=== PATIENT | female | born 1990 | race Two or more races ===

== ENCOUNTER 2018-05-29 05:03 | Emergency (ER) | payer MEDICAID, OTHER ==
[2018-05-29 05:11] VITALS: BP 117/85
[2018-05-29] MEDS ORDERED: Sodium Chloride 0.9% 1,000 ML IV STA (05:21)
[2018-05-29] MEDS ORDERED: Sodium Chloride 0.9% 10 ML Syringe FLUSH PRN (05:21)
[2018-05-29] MEDS ORDERED: HYDROmorphone 1 MG/ML Syringe IVPUSH ONE (05:24)
[2018-05-29] MEDS ORDERED: Ondansetron 4 MG/2 ML SDV IVPUSH ONE (05:24)
--- NOTE | 2018-05-29 05:26 | EDM.PDOC ---
ED HPI GENERAL MEDICAL PROBLEM - General Chief Complaint: Gastrointestinal Problem Stated Complaint: [facility] Time Seen by Provider: 05/29/18 05:17 Source of Information: Reports: Patient, EMS History Limitations: Reports: No Limitations - History of Present Illness INITIAL COMMENTS - FREE TEXT/NARRATIVE: The patient presents by [facility] for abdominal cramps, nausea and vomiting and diarrhea. This all started after she at last night at 10pm. She has generalized weakness and chills. She has no fever, cough, chest pain or shortness of breath. She is concerned she may have eaten some bad food. She still has her appendix and gallbladder. Onset: Gradual Duration: Hour(s): Location: Reports: Abdomen Quality: Reports: Other (cramping) Severity: Moderate Improves with: Reports: None Worsens with: Reports: None Associated Symptoms: Reports: Fever/Chills, Nausea/Vomiting. 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 Denies: Fever HEENT: Reports: No Symptoms Respiratory: Reports: No Symptoms Cardiovascular: Reports: No Symptoms Endocrine: Reports: No Symptoms GI/Abdominal: Reports: Abdominal Pain, Diarrhea, Nausea, Vomiting : Reports: No Symptoms Musculoskeletal: Reports: No Symptoms ED EXAM, GI/ABD - Physical Exam Exam: See Below Exam Limited By: No Limitations General Appearance: Alert, No Apparent Distress Ears: Normal External Exam Nose: Normal Inspection Head: Atraumatic, Normocephalic Neck: Normal Inspection Respiratory/Chest: No Respiratory Distress, Lungs Clear, Normal Breath Sounds Cardiovascular: Regular Rate, Rhythm, No Edema, No Murmur GI/Abdominal Exam: Soft, Non-Tender, No Organomegaly, No Mass Back Exam: Normal Inspection Extremities: Normal Inspection Neurological: Alert, Oriented, No Motor/Sensory Deficits Course - Vital Signs Last Recorded V/S: Last Vital Signs Temp 97.3 F 05/29/18 05:07 Pulse 85 05/29/18 05:07 Resp 20 05/29/18 05:07 BP 117/85 05/29/18 05:07 Pulse Ox 100 05/29/18 05:07 - Orders/Labs/Meds Orders: Active Orders 24 hr Category Date Time Status Peripheral IV Care [RC] . DIRECTED Care 05/29/18 05:21 Active HCG QUALITATIVE,SERUM [CHEM] Stat Lab 05/29/18 05:35 Received UA W/MICROSCOPIC [URIN] Stat Lab 05/29/18 06:00 Results Sodium Chloride 0.9% [Saline Flush] Med 05/29/18 05:21 Active 10 ml FLUSH ASDIRECTED PRN ED Antiemetic Medication Reflex [OM.PC] Stat Oth 05/29/18 05:21 Ordered Peripheral IV Insertion Adult [OM.PC] Stat Oth 05/29/18 05:21 Ordered Medication Orders Sodium Chloride (Saline Flush) 10 ml FLUSH ASDIRECTED PRN PRN Reason: Keep Vein Open Last Admin: 05/29/18 05:36 Dose: 10 ml Labs: Laboratory Tests 05/29/18 05/29/18 05/29/18 Range/Units 05:35 05:35 06:00 WBC 9.30 (3.98-10.04) K/mm3 RBC 4.86 (3.98-5.22) M/mm3 Hgb 14.5 (11.2-15.7) gm/L Hct 42.4 (34.1-44.9) % MCV 87.2 (79.4-94.8) fl MCH 29.8 (25.6-32.2) pg MCHC 34.2 (32.2-35.5) g/dl RDW Std Deviation 40.3 (36.4-46.3) fL Plt Count 199 (182-369) K/mm3 MPV 11.7 (9.4-12.3) fl Neut % (Auto) 89.9 H (34.0-71.1) % Lymph % (Auto) 4.5 L (19.3-51.7) % [place] % (Auto) 4.9 (4.7-12.5) % Eos % (Auto) 0.4 L (0.7-5.8) Baso % (Auto) 0.1 (0.1-1.2) % Neut # (Auto) 8.35 H (1.56-6.13) K/mm3 Lymph # (Auto) 0.42 L (1.18-3.74) K/mm3 [place] # (Auto) 0.46 H (0.24-0.36) K/mm3 Eos # (Auto) 0.04 (0.04-0.36) K/mm3 Baso # (Auto) 0.01 (0.01-0.08) K/mm3 Manual Slide Review Abnormal smear Sodium 140 (136-145) mEq/L Potassium 3.8 (3.5-5.1) mEq/L Chloride 103 (98-107) mEq/L Carbon Dioxide 26 (21-32) mEq/L Anion Gap 14.8 (5-15) BUN 20 H (7-18) mg/dL Creatinine 0.9 (0.55-1.02) mg/dL Est Cr Clr Drug Dosing 81.08 mL/min Estimated GFR (MDRD) > 60 (>60) mL/min BUN/Creatinine Ratio 22.2 H (14-18) Glucose 113 H (74-106) mg/dL Calcium 8.8 (8.5-10.1) mg/dL Total Bilirubin 0.6 (0.2-1.0) mg/dL AST 20 (15-37) U/L ALT 21 (14-59) U/L Alkaline Phosphatase 69 (46-116) U/L Total Protein 8.0 (6.4-8.2) g/dl Albumin 4.0 (3.4-5.0) g/dl Globulin 4.0 gm/dL Albumin/Globulin Ratio 1.0 (1-2) Lipase 141 (73-393) U/L Urine Color Yellow (Yellow) Urine Appearance Clear (Clear) Urine pH 8.5 H (5.0-8.0) Ur Specific [place] 1.020 (1.005-1.030) Urine Protein 2+ H (Negative) Urine Glucose (UA) Negative (Negative) Urine Ketones 2+ H (Negative) Urine Occult Blood Negative (Negative) Urine Nitrite Negative (Negative) Urine Bilirubin Negative (Negative) Urine Urobilinogen 0.2 (0.2-1.0) Ur Leukocyte Esterase Negative (Negative) Urine RBC 0-5 (0-5) /hpf Urine WBC 0-5 (0-5) /hpf Ur Squamous Epith Cells 5-10 H (0-5) /hpf Urine Bacteria Few (FEW) /hpf Urine Mucus Few (FEW) /hpf Meds: Medications Generic Name Dose Route Start Last Admin Trade Name Freq PRN Reason Stop Dose Admin Sodium Chloride 10 ml 05/29/18 05:21 05/29/18 05:36 Saline Flush FLUSH 10 ml ASDIRECTED PRN Administration Keep Vein Open Discontinued Medications Generic Name Dose Route Start Last Admin Trade Name Freq PRN Reason Stop Dose Admin Hydromorphone HCl 0.5 mg 05/29/18 05:24 05/29/18 05:33 Dilaudid IVPUSH 05/29/18 05:25 0.5 mg ONETIME ONE Administration Sodium Chloride 1,000 mls @ 1,000 mls/hr 05/29/18 05:21 05/29/18 05:30 Normal Saline IV 05/29/18 06:20 1,000 mls/hr .BOLUS STA Administration Ondansetron HCl 4 mg 05/29/18 05:24 05/29/18 05:32 Zofran IVPUSH 05/29/18 05:25 4 mg ONETIME ONE Administration - Re-Assessments/Exams Free Text/Narrative Re-Assessment/Exam: 05/29/18 05:26 I ordered an IV NS 1L bolus, zofran 4mg IV, dilaudid 0.5mg IV, labs and UA. 05/29/18 06:32 Her CBC and CMP look good. Her UA shows no UTI. She feels much better and she can keep down some ice chips. I will discharge her home with some zofran. Departure - Departure Time of Disposition: 06:35 Disposition: Home, Self-Care 01 Condition: Good Clinical Impression: Gastroenteritis - Discharge Information *PRESCRIPTION DRUG MONITORING PROGRAM REVIEWED*: Not Applicable *COPY OF PRESCRIPTION DRUG MONITORING REPORT IN PATIENT LUIS F: Not Applicable Prescriptions: Ondansetron [Zofran ODT] 4 mg PO Q6H PRN #20 tab.dis PRN Reason: Nausea\vomiting Referrals: Sheyla Navarro PA-C [Physician Director [employer]] - Forms: ED Department Discharge Additional Instructions: Drink plenty of fluids. Take the zofran every 6 hours as needed for nausea and vomiting. Please return if you are worse. - My Orders Last 24 Hours: My Active Orders 05/29/18 05:21 Peripheral IV Care [] . DIRECTED Sodium Chloride 0.9% [Saline Flush] 10 ml FLUSH ASDIRECTED PRN ED Antiemetic Medication Reflex [OM.PC] Stat Peripheral IV Insertion Adult [OM.PC] Stat 05/29/18 05:35 HCG QUALITATIVE,SERUM [CHEM] Stat 05/29/18 06:00 UA W/MICROSCOPIC [URIN] Stat - Assessment/Plan Last 24 Hours: My Active Orders 05/29/18 05:21 Peripheral IV Care [RC] . DIRECTED Sodium Chloride 0.9% [Saline Flush] 10 ml FLUSH ASDIRECTED PRN ED Antiemetic Medication Reflex [OM.PC] Stat Peripheral IV Insertion Adult [OM.PC] Stat 05/29/18 05:35 HCG QUALITATIVE,SERUM [CHEM] Stat 05/29/18 06:00 UA W/MICROSCOPIC [URIN] Stat
== END 2018-05-29 06:41 | disposition home or self-care (01) ==
LOC: JD.ED 05:03
DX: K52.9 Noninfective gastroenteritis and colitis, unspecified (principal)
CPT/HCPCS: 36415; 80053; 81001; 83690; 84703; 85025; 96361; 96374; 96375; 99284; J1170; J2405; J7040

== ENCOUNTER 2019-04-21 21:42 | Emergency (ER) | payer MEDICAID ==
[2019-04-21 21:48] VITALS: BP 122/67; PULSE 112
--- NOTE | 2019-04-21 21:53 | EDM.PDOCBH ---
ED HPI GENERAL MEDICAL PROBLEM - General Chief Complaint: Drug or Alcohol Abuse Stated Complaint: [facility] Time Seen by Provider: 04/21/19 21:42 Source of Information: Reports: Patient History Limitations: Reports: No Limitations - History of Present Illness INITIAL COMMENTS - FREE TEXT/NARRATIVE: 28-year-old female arrives in the ED per [facility]. She states she smoked marijuana earlier this evening and within 5-10 minutes started to feel very unwell. She started to feel like her life is flashing before her eyes particularly thing that's happened in the past. She states many of the thought processes were extremely negative. He then started to hyperventilate and felt like she was floating in the clouds. She was aware of her heart racing. Some difficulties getting her breath etc. She got weak in her extremities with numbness and tingling and felt like she was going to pass out. She therefore summoned the [facility]. Paramedics recognize that her heart rate was 150 when they attended her with a respiratory over 24/m i.e. hyperventilation syndrome. Thus had an IV started and was given 2 mg of Ativan IV which brought her symptoms under control within 10 minutes. At this time she feels fine. She denies any chance of . Notices a new bag of marijuana which he did not use before and it could be laced with other drugs. Had a bad reaction or" bad trip" from marijuana in the past. Onset: Today Onset Date: 04/21/19 Onset Time: 20:45 Duration: Minutes: Location: Reports: Generalized Quality: Reports: Other Severity: Moderate (See history of present illness) Improves with: Reports: Medication (Ativan 2 mg IV given by paramedics relieved her symptoms) Context: Reports: Other (Smoking marijuana precipitated bad thoughts or bad trip.). Denies: Activity, Exercise, Lifting, Sick Contact, Trauma Associated Symptoms: Reports: Confusion, Chest Pain, Loss of Appetite, Shortness of Breath, Weakness (Racing heart), Other. 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 Denies: Fever, Chills, Weight Loss Respiratory: Reports: Shortness of Breath. Denies: Wheezing, Pleuritic Chest Pain, Cough, Sputum Cardiovascular: Denies: Chest Pain, Blood Pressure Problem, Claudication, Dyspnea on Exertion, Edema, Lightheadedness, Orthopnea Endocrine: Reports: No Symptoms GI/Abdominal: Reports: No Symptoms : Reports: No Symptoms Musculoskeletal: Reports: No Symptoms Skin: Reports: No Symptoms Neurological: Reports: Confusion, Dizziness, Numbness, Tingling ([place] like her heart was racing and she had numbness and tingling in her hands and face ), Weakness, Other Psychiatric: Reports: No Symptoms Hematologic/Lymphatic: Reports: No Symptoms Immunologic: Reports: No Symptoms ED EXAM, BEHAVIORAL HEALTH - Physical Exam Exam: See Below Exam Limited By: No Limitations General Appearance: Alert, WD/WN, No Apparent Distress, Other (Ears mildly tired at this time. Vital signs show temperature 36.6 heart rate is 112 and sinus. Respiratory is 16 with O2 sats of 98% BP is 122/67) Eye Exam: Bilateral Eye: Normal Inspection, PERRL Throat/Mouth: Normal Inspection, Normal Lips, Normal Oropharynx Head: Atraumatic, Normocephalic, Other Neck: Normal Inspection, Supple, Non-Tender, Full Range of Motion. No: Lymphadenopathy (L), Lymphadenopathy (R) Respiratory/Chest: No Respiratory Distress, Lungs Clear, Normal Breath Sounds, No Accessory Muscle Use, Chest Non-Tender Cardiovascular: Normal Peripheral Pulses, Regular Rate, Rhythm (Heart rate was 94 when I checked her.), No Edema, No Gallop, No Murmur, No Rub GI/Abdominal: Normal Bowel Sounds, Soft, Non-Tender, No Organomegaly, No Distention. No: Guarding, Rigid, Rebound, Tender Extremities: Normal Inspection, Normal Range of Motion, Non-Tender Neurological: Alert, CN II-XII Intact, Normal Cognition, No Motor/Sensory Deficits, Oriented x 3 Psychiatric: Normal Cognition, Oriented, Other Skin Exam: Warm, Dry (Mildly anxious.), Intact, Normal color, No rash COURSE, BEHAVIORAL HEALTH COMP - Course Vital Signs: Last Vital Signs Temp 36.6 C 04/21/19 21:45 Pulse 112 H 04/21/19 21:45 Resp 16 04/21/19 21:45 BP 122/67 04/21/19 21:45 Pulse Ox 98 04/21/19 21:45 Orders, Labs, Meds: Laboratory Tests 04/21/19 04/21/19 Range/Units 22:03 22:04 Urine HCG, Qual Negative (NEGATIVE) Urine Opiates Screen Negative (UXHIBO=915) Ur Buprenorphine Scrn Negative (CUTOFF=10) Ur Oxycodone Screen Negative (WIB0TY=999) Urine Methadone Screen Negative (PIWROW=471) Ur Propoxyphene Screen Negative (PYBFVI=462) Ur Barbiturates Screen Negative (IDBEKL=358) Ur Tricyclics Screen Negative (AVANMW=578) Ur Phencyclidine Scrn Negative (CUTOFF=25) Ur Amphetamine Screen Negative (HGRZDD=759) U Methamphetamines Scrn Negative (XQCSOU=554) U Benzodiazepines Scrn Negative (QEXJGY=994) U Cocaine Metab Screen Negative (GKKAKO=205) U Marijuana (THC) Screen Presumptive positive H (CUTOFF=50) Re-Assessment/Re-Exam: 28-year-old female presents to the ED per [facility] after experiencing bad side effects after smoking marijuana tonight. This was a new batch of marijuana for her. He was perhaps laced with other drugs or stimulants. She felt so bad that she had to call the [facility] for help. She may have gotten a batch with very high THC content which produced mild or worsening hallucinogenic effect of normal versus being laced with methamphetamine. Heart rate of 150s and respiratory 24-20/m with hyperventilation syndrome. She was treated with 2 mg of Ativan intravenously on scene and improved immensely en route to [place]. At present she feels pretty well back to normal although she remains mildly anxious. Plan urine drug screen Re-Assessment/Re-Exam Date: 04/21/19 (Urine drug screen came back positive only for marijuana. She may have had some marijuana with a very high THC component to it. Rate she is feeling improved she's been able to sleep therefore she will be discharged home on appropriate ride can be arranged for her.) Re-Assessment/Re-Exam Time: 23:59 (She has not yet been able to find anybody to take her home. She may remain in the ED overnight.) Departure - Departure Time of Disposition: 02:00 Disposition: Home, Self-Care 01 Condition: Fair Clinical Impression: Adverse effect of drug Qualifiers: Encounter type: initial encounter Qualified Code(s): T50.905A - Adverse effect of unspecified drugs, medicaments and biological substances, initial encounter - Discharge Information *PRESCRIPTION DRUG MONITORING PROGRAM REVIEWED*: Not Applicable *COPY OF PRESCRIPTION DRUG MONITORING REPORT IN PATIENT LUIS F: Not Applicable Referrals: PCP,Unknown [Ordering Only Provider] - Additional Instructions: Evaluation the emergency room tonight in regards to an adverse effect to smoking marijuana. It appears that you developed a significant hallucinogenic properties from smoking marijuana which then turned into a "bad high" with rapid heart rate and shortness of breath than the numbness and tingling in your extremities all signs and symptoms of an anxiety attack or panic attack. When the paramedics arrived her heart rate was 150 bpm with normal being 55-100. He will also breathing much more rapidly than normal with hyperventilation syndrome precipitating the weakness in her limbs and numbness and tingling and lightheadedness. They gave you 2 mg of Ativan intravenously which improved her symptoms within 10 minutes. Urine drug screen done here in the emergency room shows no other stimulants in the urine such as cocaine, LSD, psilocybin, methamphetamine etc. It was positive only for marijuana. This suggests she may have gotten a bachelor marijuana with a very high THC level much more than you' re used to. Just want to sleep as the Ativan will last for the next 6-8 hours and will make you quite sleepy for the rest of night. Sepsis Event Note - Evaluation Sepsis Screening Result: No Definite Risk - Focused Exam Vital Signs: Vital Signs Temp Pulse Resp BP Pulse Ox 04/21/19 21:45 36.6 C 112 H 16 122/67 98 Date Exam was Performed: 04/22/19 Time Exam was Performed: 02:13
== END 2019-04-22 02:09 | disposition home or self-care (01) ==
LOC: JD.ED 21:42
DX: R20.0 Anesthesia of skin (principal); R20.2 Paresthesia of skin; R00.2 Palpitations; T40.7X5A Adverse effect of cannabis (derivatives), initial encounter
CPT/HCPCS: 80306; 81025; 99283; 99285

== ENCOUNTER 2019-08-01 11:04 | Emergency (ER) | payer MEDICAID ==
--- NOTE | 2019-08-01 12:08 | EDM.PDOC ---
ED HPI GENERAL MEDICAL PROBLEM - General Chief Complaint: Cardiovascular Problem Stated Complaint: SOB/RAPID HEARTBEAT Time Seen by Provider: 08/01/19 11:39 Source of Information: Reports: Patient, RN Notes Reviewed History Limitations: Reports: No Limitations - History of Present Illness INITIAL COMMENTS - FREE TEXT/NARRATIVE: Patient is a 28-year-old female who presents to the ED for evaluation of rapid heart rate, and shortness of breath. The patient notes that she has been under a lot of stress and anxiety in her life, and that on Friday she started drinking alcohol, and did some "constitution party favors", and found out that they were meth afterwards, she states that when she drinks a lot of alcohol, in combination with meth that this makes her heart "freak out". Patient notes that over the weekend she has been trying to drink some water, and did take an antianxiety medication that a provider from the [facility] in [place] gave her, she states that that made it worse. She does not remember the name of the medication, but states that it does help blood pressure, and also helps anxiety. Patient states that she does have some increased dizziness , and "butterfly feelings" in her stomach. She notes that she has been having issues with her heart since April. She states that she finds most of the problems stem from increased alcohol use. She denies any nausea/vomiting/ diarrhea, she states she is having some mild left chest discomfort, some shortness of breath, but no fevers or chills. Patient states she usually uses the [facility] for her primary care provider source. She has not had this issue worked up in the past. 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: - Infectious Disease History Infectious Disease History: Reports: Herpes Social & Family History - Family History Family Medical History: Noncontributory - Tobacco Use Smoking Status *Q: Never Smoker - Caffeine Use Caffeine Use: Reports: Tea - Alcohol Use Alcohol Use History: Yes Date/Time of Last Drink Comment: last binge alcohol was 07/30/19 Alcohol Use Frequency: Daily (states that she normally has 1 glass of wine every other day but then also binge drinks from time to time) - Recreational Drug Use Recreational Drug Use: Yes Drug Use in Last 12 Months: Yes Recreational Drug Type: Reports: Cocaine, Methamphetamine Other Recreational Drug Type: last meth intake 07/30/19 Recreational Drug Use Frequency: Rarely - Living Situation & Occupation Living situation: Reports: Single Occupation: Unemployed ED ROS GENERAL - Review of Systems Review Of Systems: Comprehensive ROS is negative, except as noted in HPI. ED EXAM, GENERAL - Physical Exam Exam: See Below Exam Limited By: No Limitations General Appearance: Alert, WD/WN, No Apparent Distress Eye Exam: Bilateral Eye: EOMI, Normal Inspection, PERRL Ears: Normal External Exam Nose: Normal Inspection Throat/Mouth: Normal Inspection, Normal Lips, Normal Teeth, Normal Gums, Normal Oropharynx, Normal Voice, No Airway Compromise Head: Atraumatic, Normocephalic Neck: Normal Inspection Respiratory/Chest: No Respiratory Distress, Lungs Clear, Normal Breath Sounds, No Accessory Muscle Use, Chest Non-Tender Cardiovascular: Normal Peripheral Pulses, Regular Rate, Rhythm, No Murmur Peripheral Pulses: 3+: Radial (L), Radial (R) GI/Abdominal: Normal Bowel Sounds, Soft, Non-Tender, No Distention, No Mass Extremities: Normal Inspection, Normal Capillary Refill Neurological: Alert, Oriented, Normal Cognition, No Motor/Sensory Deficits Psychiatric: Normal Affect, Normal Mood, Anxious (pt talks quite rapidly) Skin Exam: Warm, Dry, Intact, Normal Color, No Rash EKG INTERPRETATION EKG Date: 08/01/19 Time: 11:45 Rhythm: NSR Rate (Beats/Min): 69 [place]: Normal P-Wave: Present QRS: Normal ST-T: Normal QT: Normal Comparison: NA - No Prior EKG EKG Interpretation Comments: no acute ischemic change, reviewed by myself and Dr. Choudhary Course - Vital Signs Last Recorded V/S: Last Vital Signs Temp 97.0 F 08/01/19 11:20 Pulse 73 08/01/19 11:20 Resp 16 08/01/19 11:20 BP 124/87 08/01/19 11:20 Pulse Ox 96 08/01/19 11:20 - Orders/Labs/Meds Orders: Active Orders 24 hr Category Date Time Status EKG Documentation Completion [RC] STAT Care 08/01/19 12:03 Active Labs: Laboratory Tests 08/01/19 08/01/19 08/01/19 Range/Units 12:25 13:00 13:00 WBC 11.12 H (3.98-10.04) K/mm3 RBC 4.58 (3.98-5.22) M/mm3 Hgb 14.0 (11.2-15.7) gm/dl Hct 41.9 (34.1-44.9) % MCV 91.5 D (79.4-94.8) fl MCH 30.6 (25.6-32.2) pg MCHC 33.4 (32.2-35.5) g/dl RDW Std Deviation 45.1 (36.4-46.3) fL Plt Count 222 (182-369) K/mm3 MPV 11.5 (9.4-12.3) fl Neut % (Auto) 77.9 H (34.0-71.1) % Lymph % (Auto) 16.0 L (19.3-51.7) % Sharkey % (Auto) 5.0 (4.7-12.5) % Eos % (Auto) 0.7 (0.7-5.8) Baso % (Auto) 0.3 (0.1-1.2) % Neut # (Auto) 8.66 H (1.56-6.13) K/mm3 Lymph # (Auto) 1.78 (1.18-3.74) K/mm3 Sharkey # (Auto) 0.56 H (0.24-0.36) K/mm3 Eos # (Auto) 0.08 (0.04-0.36) K/mm3 Baso # (Auto) 0.03 (0.01-0.08) K/mm3 Manual Slide Review Normal smear Sodium 139 (136-145) mEq/L Potassium 4.0 (3.5-5.1) mEq/L Chloride 103 (98-107) mEq/L Carbon Dioxide 24 (21-32) mEq/L Anion Gap 16.0 H (5-15) BUN 14 (7-18) mg/dL Creatinine 0.9 (0.55-1.02) mg/dL Est Cr Clr Drug Dosing 80.36 mL/min Estimated GFR (MDRD) > 60 (>60) mL/min BUN/Creatinine Ratio 15.6 (14-18) Glucose 98 (74-106) mg/dL Calcium 9.5 (8.5-10.1) mg/dL Total Bilirubin 1.2 H (0.2-1.0) mg/dL AST 19 (15-37) U/L ALT 18 (14-59) U/L Alkaline Phosphatase 50 (46-116) U/L Total Protein 8.2 (6.4-8.2) g/dl Albumin 4.0 (3.4-5.0) g/dl Globulin 4.2 gm/dL Albumin/Globulin Ratio 1.0 (1-2) TSH 3rd Generation 0.621 (0.358-3.74) uIU/mL Urine Opiates Screen Negative (TYJZPB=643) Ur Buprenorphine Scrn Negative (CUTOFF=10) Ur Oxycodone Screen Negative (KYS8YD=230) Urine Methadone Screen Negative (VSHPVH=122) Ur Propoxyphene Screen Negative (WILABX=843) Ur Barbiturates Screen Negative (AMQHXY=181) Ur Tricyclics Screen Negative (FWOEVM=045) Ur Phencyclidine Scrn Negative (CUTOFF=25) Ur Amphetamine Screen Presumptive positive H (GLJXVZ=538) U Methamphetamines Scrn Negative (NBRHLZ=839) U Benzodiazepines Scrn Negative (UDNOCO=725) U Cocaine Metab Screen Negative (KLFZDK=382) U Marijuana (THC) Screen Negative (CUTOFF=50) - Re-Assessments/Exams Free Text/Narrative Re-Assessment/Exam: 08/01/19 12:18 Patient presents to the ED for evaluation of her heart issues and anxiety. EKG was done at time of triage, demonstrates normal sinus rhythm no acute ischemic change. Reviewed by myself and Dr. Choudhary. Have ordered some labs and a chest x-ray for further evaluation, will likely send the patient home with a Holter monitor and have her follow-up with the provider at the [facility] for further management. 08/01/19 14:09 Chest x-ray demonstrates no acute abnormalities appreciated. Minimal scoliosis seen. Labs have started to result, the CBC is essentially within normal limits , drug screen is presumptive positive for amphetamines which would be consistent with her admitted use. Metabolic panel and TSH are pending at this time. 08/01/19 14:34 Metabolic panel and TSH are back and within normal limits. Will discharge patient home with a Holter monitor and a copy of her EKG and her discharge packet for [facility] services review. Departure - Departure Time of Disposition: 14:36 Disposition: Home, Self-Care 01 Condition: Good Clinical Impression: Palpitations with regular cardiac rhythm, Anxiety Instructions: Palpitations, [id number], Living With Anxiety Referrals: PCP,None [Primary Care Provider] - Forms: ED Department Discharge Additional Instructions: You were evaluated in the ER today regarding your palpitations and anxiety. You had an EKG and some lab work done at today's visit, and all of this was within normal limits, you will be sent home with a 48-hour Holter monitor, please wear this continuously to monitor your heart rhythm over the next few days. You will have to return this to the ER entrance after 48 hours is completed, so on Friday afternoon. Recommend you wait at least 1 week for us to get the results read before you schedule an appointment with your primary care provider for follow-up. The results will be sent to Shaila Simeon at the [facility] in [facility] per your request. Recommend you obtain an appointment with her sometime mid next week to the end of the week for follow-up. You have been given a prescription for Ativan, please take 1/2-1 full tablet 3 times a day as needed for anxiety symptoms. You were given just a few to try, if these should provide you relief from your anxiety, discuss this with your primary care provider for continuation. As always please return to the ER at any time if symptoms change or worsen. Sepsis Event Note - Evaluation Sepsis Screening Result: No Definite Risk - Focused Exam Vital Signs: Vital Signs Temp Pulse Resp BP Pulse Ox 08/01/19 11:20 97.0 F 73 16 124/87 96 Date Exam was Performed: 08/01/19 Time Exam was Performed: 14:34 - My Orders Last 24 Hours: My Active Orders 08/01/19 12:03 EKG Documentation Completion [RC] STAT - Assessment/Plan Last 24 Hours: My Active Orders 08/01/19 12:03 EKG Documentation Completion [RC] STAT
--- NOTE | 2019-08-01 14:04 | CR ---
Chest: Portable view of the chest was obtained. Comparison: No prior chest imaging is available. Heart size and mediastinum are normal. Lungs are clear with no acute parenchymal change. Minimal scoliosis is seen. Impression: 1. Nothing acute is appreciated on portable chest x-ray. Diagnostic code #2 This report was dictated in MDT
[2019-08-01 15:20] VITALS: BP 130/83; PULSE 71
== END 2019-08-01 15:14 | disposition home or self-care (01) ==
LOC: JD.ED 11:04
DX: F41.9 Anxiety disorder, unspecified (principal)
CPT/HCPCS: 36415; 71045; 71045-26; 80053; 80306; 84443; 85025; 93005; 93010; 93225; 93226; 99283; 99285-25

== ENCOUNTER 2019-08-27 08:23 | Emergency (ER) | payer MEDICAID ==
[2019-08-27 08:33] VITALS: BP 106/76; PULSE 63
--- NOTE | 2019-08-27 09:11 | EDM.PDOC ---
ED HPI GENERAL MEDICAL PROBLEM - General Chief Complaint: General Stated Complaint: ADVERSE SIDE EFFECTS DUE TO MEDICATION Time Seen by Provider: 08/27/19 08:45 Source of Information: Reports: Patient, RN Notes Reviewed - History of Present Illness INITIAL COMMENTS - FREE TEXT/NARRATIVE: 28 yr old female with onset of abd pain, cramping, nausea, chest tightness, dyspnea, mild diarrhea middle of night. [place] dizzy, lightheaded and mild paresthesia sensation entire body. That is all better now. She is concerned for medication reaction or could it be something more serious. No chest pain or difficulty breathing at this time. No abd pain or nausea at this time. No longer feels dizzy or lightheaded. 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: Psychiatric History: Reports: Anxiety, Depression - Infectious Disease History Infectious Disease History: Reports: Herpes Social & Family History - Family History Family Medical History: Noncontributory - Tobacco Use Smoking Status *Q: Former Smoker Years of Tobacco use: 1 Used Tobacco, but Quit: Yes Month/Year Tobacco Last Used: 08/2013 - Caffeine Use Caffeine Use: Reports: None - Recreational Drug Use Recreational Drug Use: Yes Drug Use in Last 12 Months: Yes Recreational Drug Type: Reports: Cocaine Recreational Drug Use Frequency: Not Used In Over 5 Months - Living Situation & Occupation Living situation: Reports: Single Occupation: Unemployed ED ROS GENERAL - Review of Systems Review Of Systems: See Below Constitutional: Reports: Diaphoresis (mild, gone). Denies: Fever, Chills HEENT: Reports: No Symptoms Respiratory: Reports: Shortness of Breath (gone) Cardiovascular: Reports: Chest Pain (gone) GI/Abdominal: Reports: Abdominal Pain (gone), Nausea. Denies: Hematochezia, Melena, Vomiting : Reports: No Symptoms Musculoskeletal: Reports: No Symptoms Neurological: Reports: Numbness (gone). Denies: Trouble Speaking, Difficulty Walking ED EXAM, GENERAL - Physical Exam Exam: See Below General Appearance: Alert, No Apparent Distress Eye Exam: Bilateral Eye: PERRL Throat/Mouth: Normal Inspection, Normal Oropharynx Head: Atraumatic. No: Facial Swelling Neck: Supple, Full Range of Motion Respiratory/Chest: No Respiratory Distress, Lungs Clear, Normal Breath Sounds Cardiovascular: Regular Rate, Rhythm GI/Abdominal: Soft, Non-Tender. No: Guarding Extremities: Normal Inspection, Normal Range of Motion Neurological: Alert, Oriented, No Motor/Sensory Deficits, Other (finger to nose nl) Course - Vital Signs Last Recorded V/S: Last Vital Signs Temp 97.1 F 08/27/19 08:29 Pulse 63 08/27/19 08:29 Resp 18 08/27/19 08:29 BP 106/76 08/27/19 08:29 Pulse Ox 95 08/27/19 08:29 - Re-Assessments/Exams Free Text/Narrative Re-Assessment/Exam: 08/27/19 09:51 pt doing well at time of exam, labs, imaging not clinically indicated or likely to be helpful. She has had labs done through clinic not too long ago that were normal. This could be advers food reaction or possibly medication related. She is comfortable to continue her current med at the current half dose. Departure - Departure Time of Disposition: 09:09 Disposition: Home, Self-Care 01 Clinical Impression: Abdominal pain, Dizziness, Vomiting - Discharge Information Instructions: Nausea and Vomiting, Adult, [id number], Abdominal Pain, Adult, [id number], Dizziness, [id number] Referrals: PCP,None [Primary Care Provider] - Forms: ED Department Discharge Additional Instructions: Rest, clear liquids for the next few hours, than careful bland diet as tolerated. Follow up clinic as needed. Return to ED as needed if symptoms worsening in any way. Sepsis Event Note - Evaluation Sepsis Screening Result: No Definite Risk - Focused Exam Vital Signs: Vital Signs Temp Pulse Resp BP Pulse Ox 08/27/19 08:29 97.1 F 63 18 106/76 95 Date Exam was Performed: 08/27/19 Time Exam was Performed: 09:43
== END 2019-08-27 09:17 | disposition home or self-care (01) ==
LOC: JD.ED 08:23
DX: R10.9 Unspecified abdominal pain (principal); R42 Dizziness and giddiness; R11.2 Nausea with vomiting, unspecified; F41.9 Anxiety disorder, unspecified; F32.9 Major depressive disorder, single episode, unspecified; Z87.891 Personal history of nicotine dependence; Z79.899 Other long term (current) drug therapy
CPT/HCPCS: 99282; 99284